=== PATIENT | male | born 1940 | race Caucasian/White ===

== ENCOUNTER 2016-09-25 22:23 | Emergency (ER) | payer OTHER, MEDICARE ==
[2016-09-25 22:33] VITALS: TEMP 98.4
--- NOTE | 2016-09-25 22:42 | EDPHY ---
H & P Stated Complaint: pt took Lisinopril 2 hours ago, lips tingling, thinks it is an Allergy HPI/ROS: HPI CHIEF COMPLAINT: Adverse reaction to lisinopril HISTORY OF PRESENT ILLNESS: The this patient very pleasant 76-year-old male who was recently seen here for TIA, he has been followed by his primary care doctor for hypertension. He recently had was having adjustments to his blood pressure medications he was originally taking lisinopril/HCTZ however was loading his blood pressure too much into the 90 systolic, they cut back on this medication however it still was lowering too much so he switched just solely lisinopril 10 mg. He took the 1st dose of lisinopril 10 mg tonight. He took this medication about 3 hours ago. He tells me after taking this medication about 45 minutes later he developed tingling around his mouth, he felt as if his throat was closing, he felt very lightheaded as if he was going to pass out. He decided that this was very concerned he called his doctor's office and got a hold of the nurse who referred him to the emergency room. He drove here. Upon arrival here in the emergency room is resting comfortably has no complaints he tells me that tingling around his mouth has resolved he does not feel as if his throat is closing. Past Medical History: Recent TIA, hypertension, hyperlipidemia Past Surgical History: Denies significant surgical history Social History: Denies use of drugs, alcohol, tobacco products Family History:Noncontributory ROS REVIEW OF SYSTEMS: A comprehensive 10 point review of systems is otherwise negative aside from elements mentioned in the history of present illness. Exam Constitutional appears well, triage nursing summary reviewed, vital signs reviewed, awake/alert. Eyes normal conjunctivae and sclera, EOMI, PERRLA. HENT posterior pharynx normal inspection. normal inspection, atraumatic, moist mucus membranes, no epistaxis, neck supple/ no meningismus, no raccoon eyes. Respiratory no stridor clear to auscultation bilaterally, normal breath sounds , no respiratory distress, no wheezing. Cardiovascular rate normal, regular rhythm, no murmur, no edema, distal pulses normal. Gastrointestinal soft, non-tender, no rebound, no guarding, normal bowel sounds, no distension, no pulsatile mass. Genitourinary no CVA tenderness. Musculoskeletal no midline vertebral tenderness, full range of motion, no calf swelling, no tenderness of extremities, no meningismus, good pulses, neurovascularly intact. Skin pink, warm, & dry, no rash, skin atraumatic. Neurologic awake, alert and oriented x 3, AAOx3, moves all 4 extremities equally, motor intact, sensory intact, CN II-XII intact, normal cerebellar, normal vision, normal speech. Psychiatric normal mood/affect. Heme/Lymph/Immune no lymphadenopathy. Differential Diagnosis: Includes but is not limited to in a particular order, adverse side effect of the drug, allergic reaction, anxiety, hypotension Medical Decision Making: This patient be treated for an allergic reaction lisinopril, he will have an IV established receive a fluid bolus, will medicate him with Benadryl, Solu-Medrol, Pepcid. Will monitor him closely for further signs of allergic reaction to an RIGOBERTO-inhibitor. However this time there is no evidence of tongue swelling, posterior pharynx swelling, specifically uvula is normal, no stridor, no wheezing, no shortness of breath. Re-evaluation: 0145: re-evaluation at this time this patient is resting comfortably no acute distress. He has been monitored for over 3 hours there has been no recurrence of allergic reaction her further progression of allergic reaction specifically denies chest tightness, shortness of breath, throat swelling tongue swelling or any complaints. He does understand to stop taking his lisinopril and follow up with his primary care doctor tomorrow. He understands if he has any recurrent symptoms of reaction including trouble swallowing, tongue swelling, shortness of breath return immediately to the emergency room. Source: Patient - Personal History Current Tetanus/Diphtheria Vaccine: Unsure Current Tetanus Diphtheria and Acellular Pertussis (TDAP): Unsure - Medical/Surgical History Hx Asthma: No Hx Chronic Respiratory Disease: No Hx Diabetes: No Hx Cardiac Disease: No Hx Renal Disease: No Hx Cirrhosis: No Hx Alcoholism: No Hx HIV/AIDS: No Hx Splenectomy or Spleen Trauma: No Other PMH: CVA, TIA, R eye blindness r/t trauma, polio, high cholesterol, L Vitreous body detachment - Social History Smoking Status: Former smoker Constitutional: Initial Vital Signs Temperature (C) 36.9 C 09/25/16 22:30 Heart Rate 75 09/25/16 22:30 Respiratory Rate 15 09/25/16 22:30 Blood Pressure 169/89 H 09/25/16 22:30 O2 Sat (%) 96 09/25/16 22:30 O2 Delivery Mode Room Air Allergies/Adverse Reactions: lisinopril Allergy (Severe, Verified 09/25/16 23:42) Anaphylaxis Home Medications: Medication Instructions Recorded Aspirin [Aspirin 325 mg (*)] 325 mg PO HS #0 tab 08/04/16 Atorvastatin Calcium [Lipitor 20 80 mg PO HS 09/25/16 mg (*)] Lisinopril 10 mg 09/25/16 Medical Decision Making - Data Points Laboratory Results: Laboratory Results 09/25/16 22:43 09/25/16 22:43 09/25/16 22:43 WBC 6.98 10^3/uL (3.80-9.50) RBC 4.77 10^6/uL (4.40-6.38) Hgb 15.7 g/dL (13.7-17.5) Hct 43.6 % (40.0-51.0) MCV 91.4 fL (81.5-99.8) MCH 32.9 pg (27.9-34.1) MCHC 36.0 g/dL (32.4-36.7) RDW 12.1 % (11.5-15.2) Plt Count 332 10^3/uL (150-400) MPV 9.2 fL (8.7-11.7) Neut % (Auto) 59.7 % (39.3-74.2) Lymph % (Auto) 23.2 % (15.0-45.0) Anson % (Auto) 9.7 % (4.5-13.0) Eos % (Auto) 6.6 % (0.6-7.6) Baso % (Auto) 0.7 % (0.3-1.7) Nucleat RBC Rel Count 0.0 % (0.0-0.2) Absolute Neuts (auto) 4.16 10^3/uL (1.70-6.50) Absolute Lymphs (auto) 1.62 10^3/uL (1.00-3.00) Absolute Monos (auto) 0.68 10^3/uL (0.30-0.80) Absolute Eos (auto) 0.46 H 10^3/uL (0.03-0.40) Absolute Basos (auto) 0.05 10^3/uL (0.02-0.10) Absolute Nucleated RBC 0.00 10^3/uL (0-0.01) Immature Gran % 0.1 % (0.0-1.1) Immature Gran # 0.01 10^3/uL (0.00-0.10) Sodium 141 mEq/L (134-144) Potassium 4.3 mEq/L (3.5-5.2) Chloride 106 mEq/L (97-110) Carbon Dioxide 20 L mEq/l (22-31) Anion Gap 15 mEq/L (8-16) BUN 21 mg/dL (7-23) Creatinine 1.0 mg/dL (0.7-1.3) Estimated GFR > 60 Glucose 92 mg/dL (70-100) Calcium 9.6 mg/dL (8.5-10.4) Medications Given: Discontinued Medications Diphenhydramine HCl (Benadryl Injection) 25 mg IVP EDNOW ONE Stop: 09/25/16 22:49 Last Admin: 09/25/16 23:00 Dose: 25 mg Famotidine (Pepcid) 20 mg IVP EDNOW ONE Stop: 09/25/16 22:49 Last Admin: 09/25/16 23:01 Dose: 20 mg Sodium Chloride (Ns) 1,000 mls @ 0 mls/hr IV ONCE ONE PRN Reason: Wide Open Stop: 09/25/16 22:50 Last Admin: 09/25/16 23:01 Dose: 1,000 mls Methylprednisolone Sodium Succinate (Solu-Medrol) 125 mg IVP EDNOW ONE Stop: 09/25/16 22:49 Last Admin: 09/25/16 23:01 Dose: 125 mg Departure - Departure Disposition: Home, Routine, Self-Care Clinical Impression: Allergic reaction Qualifiers: Encounter type: initial encounter Qualifier Code: (T78.40XA) Allergy, unspecified, initial encounter Condition: Fair Instructions: Allergies (ED) Additional Instructions: 1. Stop your lisinopril 2. Return emergency room if you have any further or worsening symptoms. Referrals: Rdo Vera MD [Primary Care Provider] - As per Instructions
[2016-09-25] MEDS ORDERED: methylPREDNISolone SOD SUCC 125 MG/2 ML VIAL IVP ONE (22:48)
[2016-09-25] MEDS ORDERED: FAMOTIDINE 20 MG/2 ML SDV IVP ONE (22:48)
[2016-09-25] MEDS ORDERED: NS 1,000 ML IV ONE (22:49)
[2016-09-25] MEDS ORDERED: FAMOTIDINE 20 MG/2 ML SDV ONE (22:53)
[2016-09-25] MEDS ORDERED: methylPREDNISolone SOD SUCC 125 MG/2 ML VIAL ONE (22:53)
[2016-09-25 22:56] LABS: % IMMATURE GRANULYOCYTES 0.1 % (0.0-1.1); ABSOLUTE IMMATURE GRANULOCYTES 0.01 10^3/uL (0.00-0.10); ADD DIFF? NO; ADD MORPH? NO; ADD SCAN? NO; ATYPICAL LYMPHOCYTE FLAG 0 (0-99); FRAGMENT RBC FLAG 0 (0-99); HEMATOCRIT 43.6 % (40.0-51.0); HEMOGLOBIN 15.7 g/dL (13.7-17.5); LEFT SHIFT FLG 0 (0-99); LIPEMIA HEMOLYSIS FLAG 90 (0-99); MEAN CELL HEMOGLOBIN 32.9 pg (27.9-34.1); MEAN CELL VOLUME 91.4 fL (81.5-99.8); MEAN PLATELET VOLUME 9.2 fL (8.7-11.7); PLATELET CLUMPS FLAG 10 (0-99); PLATELET COUNT 332 10^3/uL (150-400); RED BLOOD CELL COUNT 4.77 10^6/uL (4.40-6.38); RED CELL DISTRIBUTION WIDTH 12.1 % (11.5-15.2)
[2016-09-25 23:28] LABS: ANION GAP 15 mEq/L (8-16); CALCIUM 9.6 mg/dL (8.5-10.4); CARBON DIOXIDE 20 mEq/l (22-31); CHLORIDE 106 mEq/L (97-110); GLOMERULAR FILTRATION RATE > 60; GLUCOSE 92 mg/dL (70-100); POTASSIUM 4.3 mEq/L (3.5-5.2); SODIUM 141 mEq/L (134-144)
[2016-09-26 01:59] VITALS: BP 148/79; PULSE 81; RESP 16; O2SAT 97
== END 2016-09-26 01:59 | disposition home or self-care (01) ==
DX: T78.40XA Allergy, unspecified, initial encounter (principal); T46.4X5A Adverse effect of angiotensin-converting-enzyme inhibitors, initial encounter; I10 Essential (primary) hypertension; Z79.82 Long term (current) use of aspirin; Z86.73 Personal history of transient ischemic attack (TIA), and cerebral infarction without residual deficits; Z87.891 Personal history of nicotine dependence
CPT/HCPCS: 96361; 96374; 96375; 99284; J1200

== ENCOUNTER 2016-10-02 23:26 | Emergency (ER) | payer OTHER, MEDICARE ==
[2016-10-02 23:35] VITALS: RESP 16
[2016-10-03 00:56] LABS: COLOR YELLOW; LEUKOCYTE ESTERASE,URINE NEGATIVE (NEGATIVE); NITRITE,URINE NEGATIVE (NEGATIVE)
--- NOTE | 2016-10-03 01:04 | EDPHY ---
H & P Stated Complaint: sent by poison control for suspected water intoxication, back pain Time Seen by Provider: 10/02/16 23:56 HPI/ROS: HPI The patient presents with concern that the distilled water he is drinking is causing him electrolyte disturbance. He started drinking distilled water instead of tap water about 2 months ago and has been drinking about 1 and half gal a day he says. He is doing this in part to maintain a low-sodium diet due to his hypertension. He began doing some research on the Internet and began to be concerned that he was drinking too much of it. He called poison Control and he says that they instructed him to go into the emergency room. He has been taking lisinopril for his hypertension and checking his blood pressure quite frequently at home. He normally is normotensive he says. He has been in the ER frequently because of his blood pressure. He is also concerned because he is urine appears foamy. REVIEW OF SYSTEMS Constitutional: No fever, no chills. Eyes: No discharge. ENT: No sore throat. Cardiovascular: No chest pain, no palpitations. Respiratory: No cough, no shortness of breath. Gastrointestinal: No abdominal pain, no vomiting. Genitourinary: No hematuria. Musculoskeletal: No back pain. Skin: No rashes. Neurological: No headache. PMHx: Hypertension, history of TIA PHYSICAL General Appearance: Alert, no distress Eyes: Pupils equal and round no pallor or injection ENT, Mouth: Mucous membranes moist Respiratory: There are no retractions, lungs are clear to auscultation Cardiovascular: Regular rate and rhythm Gastrointestinal: Abdomen is soft and non-tender, no masses, bowel sounds normal Neurological: A&O, moves all extremities Skin: Warm and dry, no rashes Musculoskeletal: Neck is supple non tender Extremities: symmetrical, full range of motion Psychiatric: Patient is oriented X 3, there is no agitation Source: Patient Exam Limitations: No limitations - Personal History Current Tetanus/Diphtheria Vaccine: Yes Current Tetanus Diphtheria and Acellular Pertussis (TDAP): Yes Tetanus Vaccine Date: 2013 - Medical/Surgical History Hx Asthma: No Hx Chronic Respiratory Disease: No Hx Diabetes: No Hx Cardiac Disease: No Hx Renal Disease: No Hx Cirrhosis: No Hx Alcoholism: No Hx HIV/AIDS: No Hx Splenectomy or Spleen Trauma: No Other PMH: CVA, TIA, R eye blindness r/t trauma, polio, high cholesterol, L Vitreous body detachment - Social History Smoking Status: Former smoker Constitutional: Initial Vital Signs Temperature (C) 36.6 C 10/02/16 23:32 Heart Rate 82 10/02/16 23:32 Respiratory Rate 16 10/02/16 23:32 Blood Pressure 176/101 H 10/02/16 23:32 O2 Sat (%) 94 10/02/16 23:32 O2 Delivery Mode Room Air Allergies/Adverse Reactions: lisinopril Allergy (Severe, Verified 09/25/16 23:42) Anaphylaxis Home Medications: Medication Instructions Recorded Aspirin [Aspirin 325 mg (*)] 325 mg PO HS #0 tab 08/04/16 Atorvastatin Calcium [Lipitor 20 80 mg PO HS 09/25/16 mg (*)] Lisinopril 10 mg 09/25/16 Medical Decision Making Differential Diagnosis: This is a 76-year-old man concerned because he has been drinking distilled water for the last 2 months, approximately 1.5 gal a day. He consulted with poison Control and says he was instructed to come in for evaluation. He also reports foamy urine. Differential diagnosis includes hyponatremia, hypovolemia, anemia. A chemistry panel was run and was unremarkable. His potassium was slightly low but sodium normal. His UA was unremarkable for any protein. He was provided with reassurance. He can drink tap water if he is concerned about the distilled water. - Data Points Laboratory Results: 10/03/16 10/02/16 00:39 23:58 POC Hgb 13.6 L gm/dL (14.5-17.3) POC Hct 40 L % (42.8-50.6) POC Sodium 144 mEq/L (134-144) POC Potassium 3.2 L mEq/L (3.3-5.0) POC Chloride 109 H mEq/L (96-108) POC BUN 17 mg/dL (7-23) POC Creatinine 1.0 mg/dL (0.8-1.5) POC Glucose 110 H mg/dL (70-100) Urine Color YELLOW Urine Appearance CLEAR Urine pH 5.0 (5.0-7.5) Ur Specific [place] 1.009 (1.002-1.030) Urine Protein NEGATIVE (NEGATIVE) Urine Ketones TRACE H (NEGATIVE) Urine Blood NEGATIVE (NEGATIVE) Urine Nitrate NEGATIVE (NEGATIVE) Urine Bilirubin NEGATIVE (NEGATIVE) Urine Urobilinogen NEGATIVE EU (0.2-1.0) Ur Leukocyte Esterase NEGATIVE (NEGATIVE) Ur Culture Indicated? NOT INDICATED (NI) Urine Glucose NEGATIVE (NEGATIVE) Point of Care Test Results: 10/02/16 23:58 POC Sodium 144 POC Potassium 3.2 L POC Chloride 109 H POC BUN 17 POC Creatinine 1.0 POC Glucose 110 H Departure - Departure Disposition: Home, Routine, Self-Care Clinical Impression: HTN (hypertension) Condition: Good Instructions: Chronic Hypertension (ED) Additional Instructions: Please return to the emergency room if your worse in any way. Referrals: Rod Vera MD [Primary Care Provider] - As per Instructions
[2016-10-03 01:15] VITALS: BP 135/75; PULSE 74; TEMP 98.2; O2SAT 98
== END 2016-10-03 01:15 | disposition home or self-care (01) ==
DX: I10 Essential (primary) hypertension (principal); Z79.82 Long term (current) use of aspirin; Z86.73 Personal history of transient ischemic attack (TIA), and cerebral infarction without residual deficits; Z87.891 Personal history of nicotine dependence
CPT/HCPCS: 82947-QW

== ENCOUNTER → 2016-10-24 | Outpatient (CLI) | payer OTHER, MEDICARE | LOC: BHFA 09:30 | PROVIDERS: ATTEND Internal Medicine Interventional Cardiology | DX: I65.22 Occlusion and stenosis of left carotid artery (principal); E78.00 Pure hypercholesterolemia, unspecified; I10 Essential (primary) hypertension | CPT/HCPCS: 86141-90 ==

== ENCOUNTER → 2018-08-19 | Outpatient (CLI) | payer OTHER, MEDICARE ==
[~2018-08-19] MED LIST: IOPAMIDOL (ISOVUE 370) 100 ML BTL IV ONE
== END ==
LOC: FIMAGING 11:56
PROVIDERS: ATTEND Internal Medicine
DX: I65.23 Occlusion and stenosis of bilateral carotid arteries (principal)
CPT/HCPCS: 70498; Q9967